=== PATIENT | female | born 2000 | race Caucasian/White ===

== ENCOUNTER → 2021-04-13 02:52 | Observation (INO) ==
[2021-04-13 03:51] LABS: Candida DNA Not Detected (Not Detect); Gardnerella DNA Not Detected (Not Detect); Trichomonas DNA Not Detected (Not Detect)
[2021-04-13 15:54] LABS: Bilirubin,Urine Negative (Negative); Blood,Urine Negative (Negative); Clarity,Urine Clear (Clear); Color,Urine Light-Yellow (Yellow); Glucose,Urine (UA) Normal (Normal); Ketones,Urine Negative (Negative); Leukocyte Esterase,Urine Negative (Negative); Nitrite,Urine Negative (Negative); PH,Urine 6.5 pH Units (5.0-8.0); Protein,Urine Trace mg/dL (Neg-Trace); Specific Gravity,Urine 1.016 (1.010-1.025); Urobilinogen,Urine Normal (Normal)
== END | disposition home or self-care (01) ==
LOC: 1NENULAB
PROVIDERS: ADMIT Obstetrics & Gynecology; ATTEND Obstetrics & Gynecology

== ENCOUNTER 2021-05-11 12:03 | Inpatient (IN) ==
[2021-05-11 08:03] LABS: Basophils % 0.4 %; Eosinophils # 0.2 K/mcL (0.0-0.6); Eosinophils % 1.6 %; Hematocrit 34.4 % (35.3-44.9); Hemoglobin 11.3 g/dL (11.5-15.4); Immature Granulocytes % 0.6 % (0-4); Lymphocytes # 2.3 K/mcL (0.6-4.6); Lymphocytes % 21.9 %; Mean Corpuscular HGB Conc 32.8 g/dL (31.6-35.5); Mean Corpuscular Hemoglobin 27.4 pg (28.0-33.3); Mean Corpuscular Volume 83.3 fL (83.0-100.0); Mean Platelet Volume 9.6 fL (9.4-12.4); Monocytes # 0.9 K/mcL (0.0-1.3); Monocytes % 8.5 %; Neutrophils # 7.1 K/mcL (1.6-8.9); Platelet Count 257 K/mcL (140-400); Red Blood Count 4.13 M/mcL (3.82-4.97); Red Cell Distribution Width 13.2 % (11.5-14.5); White Blood Count 10.6 K/mcL (4.3-11.1)
[2021-05-11 08:34] LABS: Influenza A PCR Negative (Negative); Influenza B PCR Negative (Negative); Resp. Syncytial Virus PCR Negative (Negative)
[2021-05-11 08:36] LABS: SARS-CoV-2 by PCR (In House) Negative (Negative)
[2021-05-11 11:51] LABS: Amphetamine Screen,Urine Negative ng/mL (Cutoff=1000); Barbiturate Screen,Urine Negative ng/mL (Cutoff=200); Benzodiazepines Screen,Urine Negative ng/mL (Cutoff=200); Cannabinoid Screen,Urine Negative ng/mL (Cutoff = 50); Cocaine Screen,Urine Negative ng/mL (Cutoff= 300); Opiate Screen,Urine Negative ng/mL (Cutoff=300); Phencyclidine Screen,Urine Negative ng/mL (Cutoff=25)
[~2021-05-11 12:03] MED LIST: *HR* Nalbuphine 10 MG/ML AMPUL IV PRN; *HR* Phenylephrine 10 MG/ML VIAL ONE; Azithromycin 500 MG in 0.9 % Sodium Chloride 250 ML IVPB PRN; Bupivacaine-MPF 0.25% 10 ML VIAL ONE; EPHEDrine 50 MG/ML VIAL IVP PRN; Epidural Premix (fent/bupiv) 110 ML EP SCH; Famotidine 20 MG/2 ML VIAL IVP PRN; Lidocaine 1% 20 ML MDV ID PRN; Metoclopramide 10 MG/2 ML VIAL IVP PRN; Naloxone 0.4 MG/ML INJ IVP PRN; Ondansetron 4 MG/2 ML VIAL IVP PRN; Ondansetron 4 MG/2 ML VIAL ONE; Oxytocin 20 units/ LR 1000 mL 20 UNIT/1,000 ML BAG IVC ONE; Ringers Solution, Lactated 1,000 ML IVC SCH; Ringers Solution, Lactated 1,000 ML ONE
[2021-05-11] MEDS ORDERED: Oxytocin 20 units/ LR 1000 mL 20 UNIT/1,000 ML BAG IVC ONE (13:18)
[2021-05-11] MEDS ORDERED: Rho Immune Globulin 1,500 UNIT SYRINGE IM PRN (14:11)
[2021-05-11] MEDS ORDERED: Oxytocin 20 units/ LR 1000 mL 20 UNIT/1,000 ML BAG IVC SCH (14:11)
[2021-05-11] MEDS ORDERED: Lanolin 7 G OINT...G. TP PRN (14:11)
[2021-05-11] MEDS ORDERED: Benzocaine/Menthol 56 GM AEROSOL SPRAY TP PRN (14:11)
[2021-05-11] MEDS ORDERED: Measles/Mumps/Rubella Vacc 0.5 ML VIAL SQ PRN (14:11)
[2021-05-11] MEDS ORDERED: Ondansetron ODT 4 MG TAB.RAPDIS SL PRN (14:11)
[2021-05-11] MEDS: Acetaminophen 325 MG TABLET PO SCH (20:15)
[2021-05-11] MEDS: Ibuprofen 600 MG TABLET PO SCH (22:00)
[2021-05-12] MEDS: Acetaminophen 325 MG TABLET PO SCH ×2 (02:15→09:19)
[2021-05-12 03:53] VITALS: O2SAT 97
[2021-05-12] MEDS: Ibuprofen 600 MG TABLET PO SCH ×2 (04:01→05:40)
[2021-05-12 04:58] LABS: Basophils % 0.2 %; Eosinophils # 0.1 K/mcL (0.0-0.6); Eosinophils % 0.3 %; Hematocrit 29.1 % (35.3-44.9); Immature Granulocytes % 0.7 % (0-4); Lymphocytes # 1.7 K/mcL (0.6-4.6); Lymphocytes % 9.3 %; Mean Corpuscular HGB Conc 32.3 g/dL (31.6-35.5); Mean Corpuscular Hemoglobin 27.5 pg (28.0-33.3); Mean Corpuscular Volume 85.1 fL (83.0-100.0); Monocytes % 5.2 %; Neutrophils # 15.7 K/mcL (1.6-8.9); Platelet Count 222 K/mcL (140-400); Red Blood Count 3.42 M/mcL (3.82-4.97); Red Cell Distribution Width 13.3 % (11.5-14.5); Segmented Neutrophils % 84.3 %
[2021-05-12 04:59] LABS: Hemoglobin 9.4 g/dL (11.5-15.4); White Blood Count 18.6 K/mcL (4.3-11.1)
[2021-05-12] MEDS ORDERED: Prenatal Vit/FA 1 EACH TABLET PO SCH (09:00)
[2021-05-12] MEDS ORDERED: NON-FORMULARY MEDICATION 1 EACH EACH (Prenat 115/Iron Fum/Folic/Dss [Prenatal 19 Tablet] 1 PO SCH (09:00)
[2021-05-12 10:02] VITALS: BP 105/69; PULSE 92; TEMP 98.1
== END 2021-05-12 17:03 | disposition home or self-care (01) | DRG 806 ==
LOC: 1NENULAB → 1NENUOBS 14:01
PROVIDERS: ADMIT Student in an Organized Health Care Education/Training Program; ATTEND Student in an Organized Health Care Education/Training Program